=== PATIENT | female | born 1940 ===

== ENCOUNTER 2018-05-22 09:50 | Outpatient (CLI) | payer OTHER | END 2018-05-22 11:08 | disposition home or self-care (01) | LOC: NUCLEAR 09:50 | DX: M81.0 Age-related osteoporosis without current pathological fracture (principal) ==

== ENCOUNTER 2020-11-03 07:58 | Outpatient (CLI) | payer OTHER | END 2020-11-03 08:05 | disposition home or self-care (01) | LOC: SONOGRAMA 07:58 | PROVIDERS: ATTEND Internal Medicine Gastroenterology | DX: K21.9 Gastro-esophageal reflux disease without esophagitis (principal); Z86.010 Personal history of colon polyps; K57.30 Diverticulosis of large intestine without perforation or abscess without bleeding; R10.13 Epigastric pain ==